=== PATIENT | male | born 1990 | race Caucasian/White ===

== ENCOUNTER 2021-04-25 08:32 | Emergency (ER) | payer BC ==
[~2021-04-25] VITALS: Ht 185.4 cm; Wt 81.6 kg
[2021-04-25] MEDS ORDERED: OMEPRAZOLE40 MG PO (09:25)
[2021-04-25] MEDS ORDERED: PEPCID20 MG PO (09:25)
== END 2021-04-25 09:31 | disposition home or self-care (01) ==
LOC: ED 08:32
DX: K29.70 Gastritis, unspecified, without bleeding (principal); K21.9 Gastro-esophageal reflux disease without esophagitis; Z88.0 Allergy status to penicillin

== ENCOUNTER 2021-04-25 10:13 | Emergency (ER) | payer BC ==
[~2021-04-25] VITALS: Ht 185.4 cm; Wt 81.6 kg
[~2021-04-25 10:13] MED LIST: OMEPRAZOLE40 MG PO; PEPCID20 MG PO
[2021-04-25 11:05] LABS: BASO % 0.5 % (0.0-1.0); EOS # 0.2 10*3/uL (0.0-0.4); HEMATOCRIT 42.6 % (42.0-52.0); LYMPH # 1.7 10*3/uL (1.3-4.4); MEAN CORPUSCULAR HGB 29.3 pg (27.0-31.0); MEAN CORPUSCULAR HGB CONC 33.3 g/dl (33.0-37.0); MEAN PLATELET VOLUME 10.2 fl (9.6-12.3); MONO # 0.8 10*3/uL (0.1-1.0); MONO % 10.1 % (3.0-9.0); NEUT # 5.2 10*3/uL (2.3-7.9); NEUT % 65.9 % (47.0-73.0); PLATELET COUNT AUTOMATED 355 10*3/uL (130-400); RED BLOOD COUNT 4.84 10*6/uL (4.50-5.90); RED CELL DISTRI WIDTH 13.4 % (0-14.5); WHITE BLOOD COUNT 7.8 10*3/uL (4.8-10.8)
[2021-04-25 11:23] LABS: ALBUMIN 3.7 gm/dl (3.1-4.5); ALKALINE PHOSPHATASE 65 U/L (45-117); BUN 10 mg/dl (7-24); CHLORIDE 106 mmol/L (98-107); CREATININE 1.03 mg/dL (0.70-1.30); SGOT/AST 132 IU/L (3-35); SGPT/ALT 96 U/L (12-78); SODIUM 137 mmol/L (136-145); TOTAL PROTEIN 7.6 gm/dL (6.4-8.2)
== END 2021-04-25 12:23 | disposition home or self-care (01) ==
LOC: ED 10:13
PROVIDERS: Student in an Organized Health Care Education/Training Program
DX: K29.70 Gastritis, unspecified, without bleeding (principal); Z88.0 Allergy status to penicillin